=== PATIENT | female | born 1950 | race African-American/Black ===

== ENCOUNTER 2021-06-24 20:52 | Emergency (ER) | payer MEDICARE, OTHER ==
[~2021-06-24] VITALS: Ht 160 cm; Wt 59.0 kg
[2021-06-24] MEDS: NIFEDIPINE 10MG CAPSULE PO ONE (22:13)
[2021-06-24] MEDS: MECLIZINE 25MG TABLET PO ONE (22:13)
[2021-06-24 22:22] LABS: BASOPHILS % 0.3 % (0.0-2.0); EOSINOPHILS % 1.9 % (0.0-5.0); HEMATOCRIT. 39.2 % (36.0-48.0); LYMPHOCYTES % 13.9 % (20.0-50.0); MEAN CORPUSCULAR VOLUME 84.3 fL (81.0-99.0); MEAN PLATELET VOLUME 8.7 fl (7.4-10.4); MONOCYTES % 8.2 % (2.0-8.0); NEUTROPHILS % 75.7 % (40.0-76.0); PLATELET 182 x1000/uL (130-400); RED BLOOD CELL COUNT 4.65 mill/uL (4.2-5.4); RED CELL DISTRIBUTION WIDTH 15.5 % (11.6-14.6)
[2021-06-24 22:29] LABS: CHLORIDE 109 mEq/L (98-107)
[2021-06-25] MEDS ORDERED: NIFE90TA2 MT (00:20)
[2021-06-25] MEDS ORDERED: MECL-159 MT (00:20)
[2021-06-25 00:50] VITALS: BP 169/69
== END 2021-06-25 01:45 | disposition home or self-care (01) ==
LOC: ER 20:52
DX: R42 Dizziness and giddiness (principal); I11.0 Hypertensive heart disease with heart failure; I50.9 Heart failure, unspecified
CPT/HCPCS: 36415; 80053; 84484; 85025; 93005; 99284; J8597